=== PATIENT | female | born 1995 | race Hispanic/Latino ===

== ENCOUNTER 2018-05-31 10:01 | Emergency (ER) | payer OTHER ==
[~2018-05-31] VITALS: Ht 160 cm; Wt 59.0 kg
[2018-05-31] MEDS ORDERED: HYDROCODONE/APAP 10MG-325MG TAB PO ONE (10:15)
[2018-05-31 10:31] LABS: BASOPHILS % 0.4 % (0.0-1.0); EOSINOPHILS # (AUTO) 0.2 (0.0-0.4); EOSINOPHILS % 3.6 % (0.0-6.0); HEMATOCRIT 33.5 % (34.2-44.1); HEMOGLOBIN 10.7 g/dL (12.0-16.0); LYMPHOCYTES # (AUTO) 2.3 (1.0-3.2); LYMPHOCYTES % 33.4 % (18.0-39.1); MEAN CORPUSCULAR HEMOGLOBIN 27.3 pg (28-32); MEAN CORPUSCULAR HGB CONC 31.9 g/dL (31-35); MEAN CORPUSCULAR VOLUME 85.5 fL (81-99); MONOCYTES # (AUTO) 0.5 (0.2-0.8); MONOCYTES % 7.3 % (4.4-11.3); NEUTROPHILS # (AUTO) 3.7 (2.1-6.9); NEUTROPHILS % 54.7 % (38.7-80.0); PLATELET COUNT 368 x10e3/uL (140-360); RED BLOOD COUNT 3.92 x10e6/uL (3.6-5.1); RED CELL DISTRIBUTION WIDTH 13.2 % (11.7-14.4)
[2018-05-31 10:39] LABS: BILIRUBIN,URINE NEGATIVE (NEGATIVE); CLARITY,URINE CLOUDY (CLEAR); COLOR,URINE YELLOW (YELLOW); KETONES,URINE NEGATIVE (NEGATIVE); LEUKOCYTE ESTERASE ,URINE TRACE (NEGATIVE); NITRITE,URINE NEGATIVE (NEGATIVE); PREGNANCY TEST, URINE NEGATIVE (NEGATIVE); PROTEIN,URINE DIPSTICK NEGATIVE (NEGATIVE); URINE UROBILINOGEN 0.2 mg/dL (0.2 - 1)
[2018-05-31 10:46] LABS: ALANINE AMINOTRANSFERASE 31 IU/L (0-55); ALBUMIN 3.5 g/dL (3.5-5.0); ALBUMIN/GLOBULIN RATIO 1.2 (0.8-2.0); ALKALINE PHOSPHATASE 74 IU/L (40-150); ANION GAP 10.9 mmol/L (8-16); BLOOD UREA NITROGEN 11 mg/dL (7-26); BUN/CREATININE RATIO 17 (6-25); CALCIUM 8.7 mg/dL (8.4-10.2); CARBON DIOXIDE 25 mmol/L (22-29); CHLORIDE 104 mmol/L (98-107); CREATININE, SERUM 0.66 mg/dL (0.57-1.11); EST GLOMERULAR FILTRATION RATE > 60 ML/MIN (60-); GLUCOSE 70 mg/dL (74-118); POTASSIUM 3.9 mmol/L (3.5-5.1); SODIUM 136 mmol/L (136-145)
[2018-05-31 10:51] LABS: BACTERIA,URINE RARE /HPF; EPITHELIAL CELLS,URINE RARE /LPF; WBC,URINE (MAN) 0-5 /HPF (0-5)
--- NOTE | 2018-05-31 12:05 | Diagnostic Imaging Report ---
EXAM: CT of the abdomen and pelvis WITH contrast HISTORY: Right lower quadrant pain, rule out appendicitis, per the provided clinical note the patient was previously seen at an emergency room, diagnosed with bilateral ovarian cyst, and recommended for surgery, but declined COMPARISON: None available. TECHNIQUE: The abdomen and pelvis were scanned utilizing a multidetector helical scanner. Coronal and sagittal reformats are provided. PROTOCOL: Routine IV CONTRAST: 100 cc of Isovue-370. ORAL CONTRAST: Water RADIATION DOSE: Total DLP: 589.36 mGy*cm Estimated effective dose: (DLP x 0.015 x size factor) Dose modulation, iterative reconstruction, and/or weight based adjustment of the mA/kV was utilized to reduce the radiation dose to as low as reasonably achievable. COMPLICATIONS: None FINDINGS: LOWER THORAX: Unremarkable. HEPATOBILIARY: No focal hepatic lesions. No biliary ductal dilatation. The gallbladder is unremarkable. SPLEEN: No splenomegaly. PANCREAS: No focal masses or ductal dilatation. ADRENALS: No discrete adrenal nodule. KIDNEYS/URETERS: No hydronephrosis, stones, or solid mass lesions. PELVIC ORGANS/BLADDER: * Intermediate density, 5.6 cm (AP) x 4.4 cm (ML) x 6.8 cm (CC) right adnexal mass. * A slightly lower density 1.4 cm hypodensity adjacent to the superior margin of the described right adnexal mass, most likely a follicle. * A low to intermediate density, 4.2 cm (AP) x 3.6 cm (ML) x 4.1 cm (CC) left adnexal mass. * The uterus is mildly anteflexed. PERITONEUM / RETROPERITONEUM: No free air or fluid. LYMPH NODES: No pathologically enlarged lymph node. VESSELS: Unremarkable. GI TRACT: No distention or wall thickening identified. The appendix is normal. BONES: No aggressive osseous lesion or acute fracture. SOFT TISSUES: Unremarkable. IMPRESSION: 1. Bilateral adnexal masses, compatible with the provided diagnosis of bilateral ovarian cyst. A transabdominal and transvaginal ultrasound with color Doppler analysis would be helpful to further evaluate the cysts and to evaluate arterial and venous blood flow if there is concern for ovarian torsion. 2. The appendix is normal. Signed by: Dr. Camilo Waldron D.O., M.M.M. on 05/31/2018 12:02 PM
--- NOTE | 2018-05-31 13:10 | Diagnostic Imaging Report ---
TECHNIQUE: Transvaginal ultrasound imaging of the pelvis was performed. Color Doppler evaluation was utilized to supplement the evaluation. Spectral waveform analysis was not requested. HISTORY: Right-sided pelvic pain, query ovarian cyst, per the previously provided clinical note the patient was previously seen at an emergency room, diagnosed with bilateral ovarian cyst, and recommended for surgery, but declined. Last menstrual period May 11, 2018. COMPARISON: CT of the abdomen and pelvis from the same date. DISCUSSION: UTERUS: The uterus measures 6.9 x 3.7 x 4.1 cm. The endometrial echocomplex measures 1.6 cm, borderline increase. OVARIES/ADNEXA: The right ovary measures 7.4 x 6.6 x 5.1 cm. A large heterogeneous lesion measuring 6.4 cm in diameter comprising the majority of the ovary. A separate 1.3 x 1.1 x 1.3 cm anechoic focus, compatible with a follicle. The left ovary measures 4.1 x 4.7 x 3.7 cm. A predominantly hypoechoic, mildly heterogeneous 3.4 x 3.5 x 3.5 cm focus with a reticular pattern of internal echogenicity. PELVIS: No free fluid. IMPRESSION: 1. Markedly heterogeneous nonspecific 6.4 cm right ovarian mass, recommend gynecologic consultation. A follow-up MRI of the pelvis with and without contrast may be warranted for further characterization. 2. A 3.5 cm left ovarian probable evolving hemorrhagic cyst. This also could be further characterized on a follow-up MRI or alternatively a follow-up pelvic ultrasound in 6 weeks. Signed by: Dr. Camilo Waldron D.O., M.M.M. on 05/31/2018 1:06 PM
[2018-05-31 13:23] VITALS: BP 105/66
[2018-05-31] MEDS ORDERED: SODIUM CHLORIDE 0.9% 50ML 50 ML ONE (20:42)
[2018-05-31] MEDS ORDERED: IOPAMIDOL 370 MG/ML 200 ML INFUS..BTL INJ ONE (20:42)
== END 2018-05-31 13:38 | disposition home or self-care (01) ==
LOC: ER 10:01
DX: R10.31 Right lower quadrant pain (principal); N83.202 Unspecified ovarian cyst, left side; N83.201 Unspecified ovarian cyst, right side; R11.0 Nausea; J45.909 Unspecified asthma, uncomplicated
CPT/HCPCS: 36415; 74177; 76830; 80053; 81001; 81025; 85025; 87086; 99284; Q9967